=== PATIENT | female | born 1975 | race Caucasian/White ===

== ENCOUNTER 2018-08-23 06:44 | Day surgery (SDC) | payer MEDICAID ==
[2018-08-21 12:50] VITALS: Ht 149.9 cm; Wt 59.0 kg
[2018-08-23] VITALS (13 sets, daily range): BP systolic 98–110; BP diastolic 52–77; PULSE 66–88; RESP 13–22
[~2018-08-23] VITALS: Ht 149.9 cm; Wt 59.0 kg
[~2018-08-23 06:44] MED LIST: ACETAMINOPHEN 500 MG TAB PO ONE; CEFAZOLIN 2 GM/50 ML (PMX) 50 ML IVPB SCH; LACTATED RINGER'S 1,000 ML IV* SCH
[2018-08-23] MEDS ORDERED: FENTAnyl 50 MCG/ML VIAL ONE (08:20)
[2018-08-23] MEDS ORDERED: LIDOCAINE 2% (SDV) 5 ML INJ ONE (08:20)
[2018-08-23] MEDS ORDERED: FAMOTIDINE 20 MG INJ ONE (08:20)
[2018-08-23] MEDS ORDERED: ONDANSETRON 4 MG INJ ONE (08:20)
[2018-08-23] MEDS ORDERED: PROPOFOL 40 ML ONE (08:20)
[2018-08-23] MEDS ORDERED: MIDAZOLAM 1 MG/ML 2 ML INJ ONE (08:20)
[2018-08-23] MEDS ORDERED: ROCURONIUM 50 MG INJ ONE (08:20)
[2018-08-23] MEDS ORDERED: CEFAZOLIN 1 GM INJ ONE (08:20)
--- NOTE | 2018-08-23 08:52 | PREAC ---
Date/Time of Note Date/Time of Note DATE: 08/23/18 TIME: 08:51 Anesthesia Eval and Record Evaluation Time Pre-Procedure Interview DATE: 08/23/18 TIME: 08:51 Age 42 Sex female NPO: 8 hrs Preoperative diagnosis elective sterilization Planned procedure laparoscopic tubal fulguration Past Medical History Past Medical History: None Surgery & Anesthesia Issues No known issue Meds Anticoagulation: No Beta Fauzia within 24 hr: No Reason Beta Fauzia not given: Pt. not on B-Fauzia No Active Prescriptions or Reported Meds Current Medications Lactated Ringer's 1,000 ml @ 125 mls/hr Q8H IV* Last administered on 08/23/18at 06:30; Admin Dose 125 MLS/HR; Start 08/23/18 at 06:30; Stop 08/23/18 at 20:00 Cefazolin Sodium/ Dextrose 50 ml @ 100 mls/hr OC IVPB ; Start 08/23/18 at 06:30; Stop 08/23/18 at 20:00 Meds reviewed: Yes Allergies Coded Allergies: No Known Drug Allergies (Verified Allergy, Unknown, 08/23/18) Allergies Reviewed: Yes Labs/Studies Labs Reviewed: Reviewed by anesthesiologist test: Negative Pre-procedure Exam Last vitals Vital Signs Date Temp Pulse Resp B/P (MAP) Pulse Ox O2 O2 Flow FiO2 Time Delivery Rate 08/23/18 98.2 66 16 105/55 100 Room Air 08:24 (72) Airway: Adequate mouth opening, Adequate thyromental dist Mallampati: Mallampati II Teeth: Normal Lung: Normal Heart: Normal ASA Physical Status ASA physical status: 1 Emergency: None Planned Anesthetic General/MAC: ETT Pre-operative Attestations Prior to commencing anesthesia and surgery, the patient was re-evaluated, there was verification of: *The patient's identity *The results of appropriate recent lab work and preoperative vital signs *The above evaluation not changing prior to induction *Anesthetic plan, risk benefits, alternative and complications discussed with patient/family; questions answered; patient/family understands, accepts and wishes to proceed. CAMELIA DIGGS Aug 23, 2018 08:52
[2018-08-23] MEDS ORDERED: FENTAnyl 50 MCG/ML VIAL IV PRN ×2 (09:00)
[2018-08-23] MEDS ORDERED: MEPERIDINE 25 MG INJ IV PRN (09:00)
[2018-08-23] MEDS ORDERED: ALBUTEROL 0.083% (NEB) 2.5 MG/3 ML AMP HHN PRN (09:00)
[2018-08-23] MEDS ORDERED: HYDROmorphONE 1 MG/5 ML IV SYRINGE IV PRN ×3 (09:00)
[2018-08-23] MEDS ORDERED: LABETALOL HCL 20MG INJ IV PRN (09:00)
[2018-08-23] MEDS ORDERED: ONDANSETRON 4 MG INJ IV PRN (09:00)
[2018-08-23] MEDS ORDERED: DIPHENHYDRAMINE 50 MG INJ IV PRN (09:00)
[2018-08-23] MEDS ORDERED: morphine (1 MG/ML) 10ML SYRINGE IV PRN ×2 (09:00)
[2018-08-23] MEDS ORDERED: OXYCODONE/ACETAMINOPHEN (5/325) TAB PO PRN ×2 (09:00)
[2018-08-23] MEDS ORDERED: BUPIVACAINE 0.25%/EPI (SDV) 30 ML INJ ONE (09:48)
[2018-08-23] MEDS ORDERED: SUGAMMADEX SODIUM 200 MG/2 ML VIAL IV ONE (10:00)
[2018-08-23] MEDS ORDERED: KETOROLAC 30 MG INJ ONE (10:04)
--- NOTE | 2018-08-23 10:13 | OPR ---
Date/Time of Note Date/Time of Note DATE: 08/23/18 TIME: 10:10 Operative Report Procedure Date: Aug 23, 2018 Preoperative Diagnosis Desires permanent sterilization Postoperative Diagnosis same Operation/Procedure Performed laparoscopic bilateral salpingectomies Surgeon Mariza Hennessy MD Delivery Rn none Anesthesia Type: general Estimated Blood Loss: minimal Transfusion none Specimen bilateral segments of both tubes Grafts/Implants none Tubes/Drains none Complications none Pt Condition Post Procedure: stable Disposition: PACU Procedure Description FINDINGS: Normal tubes, ovaries bilaterally. small fibroid uterus. CONSENT: Please see my preop H and P consent in the office for the consent process. DESCRIPTION OF PROCEDURE: She was taken to operating room and general anesthesia was induced. She was prepped and draped in the usual sterile fashion in dorsal lithotomy position. Surgical time-out was done. Anterior lip of the cervix was grasped using a single-tooth tenaculum, and a HUMI was inserted in normal fashion. The tenaculum was removed. There was no bleeding from the cervix. The patient already had a Fernando catheter as well. Gloves were changed. A 5 mm incision was developed inside the umbilicus. A blunt trocar was inserted in the normal fashion. Intraperitoneal position was confirmed using the laparoscope. Pneumoperitoneum was obtained. The patient was placed in Trendelenburg position. A second trocar was inserted under direct visualization of the laparoscope at the pubic hairline in the midline. Right tube was coagulated and transected 7 cm medial to fimbriated portion of the tube. Right salpingectomy was performed by coagulating and transecting the mesosalpinx while at all times hugging the tube. The tube was removed and sent to pathology. the edges of the mesosalpinx was not bleeding, but for abundance of precaution, I cauterized the edges of the mesosalpinx again. There was no bleeding. Same procedure was done on the contralateral side. All instruments removed under direct visualization of the laparoscope after pneumoperitoneum was released. There was no bleeding. Skin closed using 4-0 Monocryl. Then 10 mL 0.25% Marcaine with epinephrine was injected at the incision sites. HUMI was removed. There was no bleeding from the vagina. Patient tolerated the procedure well. MARIZA HENNESSY MD Aug 23, 2018 10:13
--- NOTE | 2018-08-23 10:24 | PAC ---
Date/Time of Note Date/Time of Note DATE: 08/23/18 TIME: 10:24 Post-Anesthesia Notes Post-Anesthesia Note Last documented vital signs Vital Signs Date Temp Pulse Resp B/P Pulse Ox O2 O2 Flow FiO2 Time (MAP) Delivery Rate 08/23/18 98.2 99.1 66 90 16 18 105/55 100 100 Room 08:24 101 (72) 110 Air face 9 / mask 6L Activity: WNL Respiratory function: WNL Cardiovascular function: WNL Mental status: Baseline Pain reasonably controlled: Yes Hydration appropriate: Yes Nausea/Vomiting absent: Yes CAMELIA DIGGS Aug 23, 2018 10:24
--- NOTE | 2018-08-23 15:50 | RADRPT ---
Vent Rate: 67 bpm RR Interval: 892 msec VA Interval: 150 msec QRS Duration: 73 msec QT Interval: 395 msec QTC Interval: 418 msec P-R-T [place]: 64 - 53 - 58 degrees Sinus rhythm...normal P axis, V-rate 50- 99 Low voltage, precordial leads...precordial leads <1.0mV Electronically Signed By: Orlando Diane
== END 2018-08-23 12:50 | disposition home or self-care (01) ==
LOC: SDS 06:44
PROVIDERS: ATTEND Specialist
DX: Z30.2 Encounter for sterilization (principal); D25.9 Leiomyoma of uterus, unspecified
CPT/HCPCS: 58661; 88302; 93005; J0690; J1885; J2175; J2250; J2405; J3010; J7120; Z7610